=== PATIENT | female | born 1930 | race Caucasian/White ===

== ENCOUNTER 2017-04-10 10:54 | Emergency (ER) | payer MEDICARE, OTHER ==
[2016-03-01 12:41] VITALS: BMI 21.9
[~2017-04-10 10:54] MED LIST: ACETAMINOPHEN325 MG PO; BAYER CHEWABLE81 MG PO; COLACE100 MG PO; CRESTOR20 MG PO; HYDROCODON-ACE1 EAC7 PO; HYDROCODONE-APA1 TAB PO; LOVENOX40 MG/0.4 SC; NITROQUICK0.4 MG SL; NORVASC10 MG PO; SENEXON8.6 MG PO; SYNTHROID125 MCG PO; TOPROL XL100 MG PO; ZESTRIL20 MG PO; [UNRECOGNIZED DRUG - OTHER] PO
[2017-04-10 12:09] LABS: BASOPHILS 0.3 % (0-2); EOSINOPHILS 1.8 % (0-7); HEMATOCRIT 36.4 % (36.0-48.0); HEMOGLOBIN 12.3 g/dL (12-16); IMMATURE GRANULOCYTES 0.2 % (0-5); LYMPHOCYTES 13.8 % (15-50); MCH 31.1 pg (26.0-34.0); MCHC 33.8 g/dL (31.0-37.0); MCV 91.9 fL (80.0-100.0); MEAN PLATELET VOLUME 9.7 fL (7.4-10.4); MONOCYTES 4.9 % (2-11); PLATELET COUNT 268 10x3/uL (130-400); RBC 3.96 10x6/uL (4.00-5.40); RDW 13.9 % (11.5-14.5); WBC 9.4 10x3/uL (4.8-10.8)
[2017-04-10 12:24] LABS: ANION GAP 14.4 mmol/L (8-16); BILIRUBIN - TOTAL 0.33 mg/dL (0.2-1.3); CALCIUM 9.6 mg/dL (8.5-10.1); CARBON DIOXIDE 25.4 mmol/L (21.0-32.0); CREATININE - SERUM 1.8 mg/dL (0.6-1.3); POTASSIUM - SERUM 3.8 mmol/L (3.5-5.1); PROTEIN - SERUM 7.8 g/dL (6.4-8.2)
== END 2017-04-10 14:50 | disposition home or self-care (01) ==
LOC: D.ER 10:54
PROVIDERS: Physician Assistant
DX: Z91.81 History of falling (principal); I95.9 Hypotension, unspecified; I10 Essential (primary) hypertension